=== PATIENT | female | born 1980 | race African-American/Black ===

== ENCOUNTER 2016-10-10 20:06 | Emergency (ER) | payer OTHER ==
[~2016-10-10] VITALS: Ht 162.6 cm; Wt 120.2 kg
[2016-10-10 21:11] VITALS: BP 116/67
[2016-10-10] MEDS ORDERED: ORPHENADRINE CITRATE 60 MG/2 ML VIAL. IM ONE (22:30)
[2016-10-10] MEDS ORDERED: KETOROLAC TROMETHAMINE 60 MG/2 ML INJ. IM ONE (22:30)
[2016-10-10] MEDS ORDERED: TRAM-29 PO (23:07)
[2016-10-10] MEDS ORDERED: METH-37 PO (23:07)
--- NOTE | 2016-10-10 23:07 | PHYS DOC ---
Past Medical History Past Medical History: Anxiety, Asthma, Migraines, Other Additional Past Medical Histor: Back and R) knee pain. Past Surgical History: , Tonsillectomy, Tubal ligation Additional Past Surgical Histo: tubal ligation Smoking: Less than 1pk/day Alcohol Use: Occasionally Drug Use: None Adult General Chief Complaint Chief Complaint: LOWER EXT PAIN [facility] HPI Patient is a 36 year old female who presents with left hip pain starting today. The pain radiates down the left leg. She denies any injury. She does not have any weakness, numbness, incontinence, or saddle anesthesia. She denies nausea, vomiting, abdominal pain, or urinary symptoms. She has a history of sciatica but states that this pain is different. Her PCP is Dr. Araceli Moscoso. Review of Systems Review of Systems Constitutional: Denies fever or chills. [] Eyes: Denies change in visual acuity, redness, or eye pain. [] HENT: Denies ear pain, nasal congestion or sore throat. [] Respiratory: Denies cough or shortness of breath. [] Cardiovascular: Denies chest pain, palpitations or edema. [] GI: Denies abdominal pain, nausea, vomiting, bloody stools or diarrhea. [] : Denies dysuria, hematuria or urinary frequency. [] Musculoskeletal: Denies back pain. Reports left hip pain. Integument: Denies rash or skin lesions. [] Neurologic: Denies headache, focal weakness or sensory changes. Denies incontinence or saddle anesthesia. Endocrine: Denies polyuria or polydipsia. [] Psych: Denies anxiety or depression. [] All systems reviewed and negative unless otherwise stated in the HPI. Current Medications Current Medications Current Medications Medications (Trade) Dose Ordered Sig/Cliff Start Time Stop Time Status Last Admin Dose Admin Ketorolac Tromethamine (Toradol Im) 60 mg 1X ONCE 10/10/16 22:30 10/10/16 22:31 DC 10/10/16 22:09 60 MG Orphenadrine Citrate (Norflex) 60 mg 1X ONCE 10/10/16 22:30 10/10/16 22:31 DC 10/10/16 22:09 60 MG Allergies Allergies Allergies Coded Allergies Type Severity Reaction Last Updated Verified No Known Drug Allergies 06/13/13 No Physical Exam Physical Exam Constitutional: Well developed, well nourished, no acute distress, non-toxic appearance. [] HENT: Normocephalic, atraumatic, oropharynx moist. [] Eyes: PERRLA, EOMI, conjunctiva normal, no discharge. [] Neck: Normal range of motion, no tenderness, supple, no stridor. [] Cardiovascular: Heart rate regular rhythm, no murmur. [] Lungs & Thorax: Bilateral breath sounds clear to auscultation without wheezes, rales, or rhonchi. [] Abdomen: Bowel sounds normal, soft, no tenderness, no masses, no pulsatile masses. [] Skin: Warm, dry, no erythema, no rash. [] Back: No midline tenderness, no CVA tenderness. [] Extremities: Left hip tenderness located more in the inguinal region in the lateral hip, ROM intact, no edema. Distal pulses equal bilaterally. Light touch sensation intact proximally and distally and equal bilaterally in the lower extremities. Neurologic: Alert and oriented X 3, normal motor function, normal sensory function, no focal deficits noted. [] Psychologic: Affect normal, judgement normal, mood normal. [] Current Patient Data Vital Signs Vital Signs Date Time Temp Pulse Resp B/P Pulse Ox O2 Delivery O2 Flow Rate FiO2 10/10/16 21:11 99.9 84 18 100 Room Air 99.9 EKG EKG [] Radiology/Procedures Radiology/Procedures Three-view x-ray of the left hip and pelvis reviewed and interpreted by myself with Dr. Musa. There are no acute fractures or dislocations seen. Course & Med Decision Making Course & Med Decision Making Pertinent Labs and Imaging studies reviewed. (See chart for details) Patient is a 36-year-old female presents with atraumatic left hip pain. On exam , there is some lateral tenderness, however this pain is located mostly in the groin. She is ambulatory. X-ray does not show any acute fractures or dislocations. She is discharged home with prescription for Ultram and Robaxin. She is given contact information for orthopedics for follow-up. She is instructed to return to the emergency department if she begins having difficulty walking or other new or concerning symptoms. She verbalizes understanding and agrees with plan. Dragon Disclaimer Dragon Disclaimer This electronic medical record was generated, in whole or in part, using a voice recognition dictation system. Departure Departure Impression: Primary Impression: Hip pain, left Disposition: 01 HOME, SELF-CARE Condition: STABLE Referrals: ARACELI BARTLETT MD (PCP) TOM DIANE II, MD Patient Instructions: Hip Pain Additional Instructions: Your x-ray does not show any broken bones or dislocation. Please take the prescribed medications as directed. Do not drive or heavy machinery while taking these medications. Please follow-up with the orthopedic doctor listed below if your pain continues. Return to the emergency department if you have difficulty walking or other new or concerning symptoms. Scripts Tramadol Hcl (Ultram)50 Mg [id number] Mg PO Q6H PRN PAIN #20 TAB Prov:MARICRUZ PÉREZ 10/10/16 Methocarbamol (Robaxin)500 Mg [id number] Mg PO QID #20 TAB Prov:MARICRUZ PÉREZ 10/10/16 MARICRUZ PÉREZ Oct 10, 2016 23:07
--- NOTE | 2016-10-11 07:54 | RAD ---
Pelvis with left hip, 3 views, 10/10/2016: History: Hip pain, no trauma No fracture or dislocation is identified. The hip joint spaces are well-preserved with only minimal marginal spurring. The periarticular soft tissues are unremarkable. IMPRESSION: No significant abnormality is detected.
== END 2016-10-10 23:15 | disposition home or self-care (01) ==
LOC: ER 20:06
DX: M25.552 Pain in left hip (principal); F41.9 Anxiety disorder, unspecified; J45.909 Unspecified asthma, uncomplicated; G43.909 Migraine, unspecified, not intractable, without status migrainosus; F17.200 Nicotine dependence, unspecified, uncomplicated; Z98.51 Tubal ligation status
CPT/HCPCS: 73502; 96372; 99284; J1885; J2360

== ENCOUNTER 2017-07-17 23:14 | Emergency (ER) | payer OTHER | END 2017-07-17 23:56 | disposition home or self-care (01) | LOC: ER 23:56 | DX: S93.602A Unspecified sprain of left foot, initial encounter (principal); F41.9 Anxiety disorder, unspecified; J45.909 Unspecified asthma, uncomplicated; G43.909 Migraine, unspecified, not intractable, without status migrainosus; Z98.51 Tubal ligation status; X58.XXXA Exposure to other specified factors, initial encounter; Y93.89 Activity, other specified; Y92.89 Other specified places as the place of occurrence of the external cause; Y99.8 Other external cause status | CPT/HCPCS: 73630; 99284 ==

== ENCOUNTER 2017-08-16 18:39 | Emergency (ER) | payer OTHER | END 2017-08-16 19:05 | disposition home or self-care (01) | LOC: ER 18:39 | DX: M54.12 Radiculopathy, cervical region (principal) | CPT/HCPCS: 99283 ==

== ENCOUNTER → 2018-01-16 | Outpatient (CLI) | payer OTHER | END | disposition home or self-care (01) | LOC: MRI 14:27 | DX: S83.281A Other tear of lateral meniscus, current injury, right knee, initial encounter (principal); M17.11 Unilateral primary osteoarthritis, right knee; M22.41 Chondromalacia patellae, right knee; M71.21 Synovial cyst of popliteal space [Baker], right knee; M25.461 Effusion, right knee; J45.909 Unspecified asthma, uncomplicated; G43.909 Migraine, unspecified, not intractable, without status migrainosus; Z90.49 Acquired absence of other specified parts of digestive tract; X58.XXXA Exposure to other specified factors, initial encounter; Y93.89 Activity, other specified; Y92.89 Other specified places as the place of occurrence of the external cause; Y99.8 Other external cause status | CPT/HCPCS: 73721 ==

== ENCOUNTER 2018-02-14 06:42 | Day surgery (SDC) | payer OTHER ==
[~2018-02-14] VITALS: Ht 162.6 cm; Wt 120.7 kg
[~2018-02-14 06:42] MED LIST: BUPIVACAINE 0.5% 50 ML VIAL. ONE; BUTA1CAP31 PO; CLON1TAB4 PO; CYCL10TA2 PO; EPINEPHrine VIAL 30 MG/30 ML VIAL ONE; HYDR-971 PO; LIDOCAINE 1% PF 30 ML VIAL. ONE; METH-37 PO; PRED20TA PO; PROAIR HFA8.5 GM INH; TRAM-48 PO
[2018-02-14] MEDS ORDERED: PROCHLORPERAZINE 10 MG/2 ML VIAL. IV PRN (07:00)
[2018-02-14] MEDS ORDERED: IV RINGERS,LACTATED 1000ML 1,000 ML IV SCH (07:00)
[2018-02-14] MEDS ORDERED: ONDANSETRON PF 4 MG/2 ML VIAL. IV PRN (07:00)
[2018-02-14] MEDS ORDERED: HYDROmorphone 2 MG/ML VIAL IV PRN (07:00)
[2018-02-14] MEDS ORDERED: fentaNYL PF VIAL 100 MCG/2 ML VIAL IV PRN (07:00)
[2018-02-14] MEDS ORDERED: MORPHINE SULFATE 2 MG/ML VIAL. IV PRN (07:00)
[2018-02-14] MEDS ORDERED: LIDOCAINE 1% PF 2 ML VIAL. ID PRN (07:00)
[2018-02-14] MEDS ORDERED: SCOPOLAMINE 1.5MG PATCH. TD ONE (07:30)
--- NOTE | 2018-02-14 07:48 | DISCH ---
DISCHARGE INSTRUCTIONS Condition on Discharge Condition on Discharge: Stable Activity After Discharge Activity Instructions for Disc: Other, see below Other activity instructions: frequent ROM at knee Bathing Instructions: Shower-keep dressing dry Weight Bearing Status after Di: Non weight bearing Diet after Discharge Diet after Discharge: Regular Wound Incision Care Wound/Incision Care: Ice to area for comfort, Keep wound/cast CDI, Change dressing Other wound/incision instructi: ok to change dressing after [address] after DC Call your doctor for: Concerns you may have Follow-Up Follow up with: Chayito in 2 wks TOM DIANE II, MD Feb 14, 2018 07:48
[2018-02-14] MEDS ORDERED: ceFAZolin 2GM PREMIX 2 GM/50 ML BAG IV ONE (08:00)
[2018-02-14 08:43] LABS: U PREG PATIENT NEGATIVE (NEG)
--- NOTE | 2018-02-14 08:48 | PDOC4 ---
Operative Note Operative Note Date of procedure: 02/14/2018 Surgeon: Nick Diane Preoperative diagnosis: Right knee lateral meniscus tear #2 right knee cartilage lesion Postoperative diagnosis: #1 full-thickness cartilage defect, 5 mm x 12 mm at lateral tibial plateau #2 radial type lateral meniscus tear at body Procedure performed: #1 arthroscopic microfracture of lateral tibial plateau #2 arthroscopic partial lateral meniscectomy Anesthesia: Gen. Complications: None Blood loss: 5 mL Tourniquet time: Less than 30 minutes Findings: Intact cartilage at medial compartment and patellofemoral compartment No loose bodies Intact medial meniscus Intact cruciate ligaments Inner edge, white white radial tear at body of lateral meniscus Full-thickness cartilage lesion with above measurements at lateral tibial plateau Intact lateral femoral condyle cartilage. Reason for procedure: Patient is a very pleasant 37-year-old female with persistent knee pain, stiffness and swelling. Clinical and radiographic examination including MRI were consistent with the above preoperative diagnosis. Failure of conservative therapies little too discussion of the risks , benefits, and alternatives to the above procedure and she wished to proceed. Description of procedure: Patient was greeted in the preoperative holding area by myself for the correct extremity was verified and marked. She is taken back to the operative suite and her antibiotics were started as she was brought back. Once in the operating room, she was transferred gently supine to the operating room bed and had successful induction of a general anesthetic. I then conducted my examination under anesthesia which demonstrated a range of motion of -5-140. Knee was stable to varus and valgus in extension and mid flexion. Negative Zahida with solid endpoint, negative pivot shift. We then applied a nonsterile tourniquet and taped in place to her right upper thigh. A padded bump laterally at her hip and a padded foot plate were secured to the bed to help maintain her knee at 90 passively. We then proceeded to prep and drape right lower extremity in our usual sterile fashion and conducted our standard preoperative timeout. I then palpated and marked surface anatomy after exsanguinating the extremity and insufflated tourniquet to 350 mmHg. I then incised skin for my standard anterolateral arthroscopic portal and introduced the blunt arthroscopic trocar into the suprapatellar pouch followed by the camera. I then entered the medial compartment and used a spinal needle to localize an anteromedial portal and incised skin in accordance with the spinal needle and then dilated the hole. I introduce my probe conducted my diagnostic arthroscopy with the above noted findings. I took down some her Pad for visualization. I then placed her into a figure 4 position to inspect the lateral compartment. I placed my camera in the anteromedial portal and then used my shaver to perform the partial meniscectomy back to stable edges. Her meniscus tear really wasn't too big. After this, used a curet and shaver to debride the calcified cartilage and loose cartilage edge to a stable rim at her lateral tibial plateau. After accomplishing this, I used a microfracture awl to punch holes in her bone. I then used suction to verify extravasation of marrow elements, which was present. I then reintroduced the shaver and camera into the suprapatellar pouch and performed repeated aspiration maneuvers. After this, I removed all excess arthroscopic fluid and the arthroscopic interpretation. Portals were closed with simple interrupted 0 nylon. The leg was cleansed and dried and a sterile dressing was applied followed by an Mohsen wrap followed by hinged knee brace from 0-90. No complications. Tourniquet was let down. She tolerated surgery well. The conclusion of the surgery she is awake from anesthesia and transferred gently supine to the recovery room cart and taken to PACU in a stable and extubated condition. Postoperative plan is for her to be nonweightbearing for 6 weeks. The importance of frequent knee range of motion was discussed with her. I will see her back in my clinic in 2 weeks, sooner should a problem arise. NICK DIANE II, MD Feb 14, 2018 08:48
[2018-02-14] MEDS: fentaNYL PF VIAL 100 MCG/2 ML VIAL IV PRN ×3 (08:54→09:18)
[2018-02-14] MEDS ORDERED: PROPOFOL 20 ML IV ONE (10:12)
[2018-02-14] MEDS ORDERED: fentaNYL PF VIAL 100 MCG/2 ML VIAL ONE (10:12)
[2018-02-14] MEDS ORDERED: MIDAZOLAM HCL/PF 2 MG/2 ML VIAL. ONE (10:12)
[2018-02-14] MEDS ORDERED: ONDANSETRON PF 4 MG/2 ML VIAL. ONE (10:13)
[2018-02-14] MEDS ORDERED: DEXAMETHASONE SOD PHOS 20 MG/5 ML VIAL. ONE (10:13)
[2018-02-14] MEDS ORDERED: KETOROLAC 30 MG/ML INJ FOR OR. INJ ONE (10:13)
[2018-02-14] MEDS ORDERED: LIDOCAINE 2% PF Vial for OR 5 ML VIAL. ONE (10:13)
[2018-02-14] MEDS ORDERED: HYDROcodone/APAP 5/325MG 1 TAB TABLET PO PRN (10:15)
[2018-02-14 10:26] VITALS: BP 152/75
== END 2018-02-14 11:05 | disposition home or self-care (01) ==
LOC: SURG 06:42
PROVIDERS: ATTEND Orthopaedic Surgery Sports Medicine
DX: S83.281A Other tear of lateral meniscus, current injury, right knee, initial encounter (principal); X58.XXXA Exposure to other specified factors, initial encounter; Y93.89 Activity, other specified; Y92.89 Other specified places as the place of occurrence of the external cause; Y99.8 Other external cause status; M94.8X6 Other specified disorders of cartilage, lower leg; M71.21 Synovial cyst of popliteal space [Baker], right knee; M17.11 Unilateral primary osteoarthritis, right knee; J45.909 Unspecified asthma, uncomplicated; Z79.899 Other long term (current) drug therapy; Z90.49 Acquired absence of other specified parts of digestive tract
CPT/HCPCS: 29879; 29881; 81025; C1782; J0171; J0690; J1100; J1885; J2001; J2250; J2405; J2704; J3010; J3490; J7120; A7015; J2270